=== PATIENT | male | born 2000 | race Two or more races ===

== ENCOUNTER 2020-05-30 18:34 | Emergency (ER) | payer OTHER ==
[~2020-05-30] VITALS: Ht 180.3 cm; Wt 70.5 kg
--- NOTE | 2020-05-30 18:52 | NUR ---
BREAK RN: PT. [facility] PT. HAD LEFT INDEX FINGER TIP AMPUTAION BY SAW WHILE AT WORK [employer]. PT. RECEIVED ABX AND TETANUS SHOT [employer]. IV IN PLACE [employer]. HAND TRAY AT FOR
--- NOTE | 2020-05-30 19:00 | NUR ---
REPORT BACK TO [facility]ER TO REASSUME CARE.
[2020-05-30] MEDS ORDERED: LIDOCAINE-MPF 1%, 5ML ONE (19:22)
[2020-05-30] MEDS ORDERED: BUPIVACAINE 0.25% ONE (19:22)
[2020-05-30] MEDS ORDERED: LIDOCAINE-MPF 2% ,5ML ONE (19:22)
--- NOTE | 2020-05-30 20:15 | NUR ---
pt finger tip amputated by dr zarate and sutured + dressed.
[2020-05-30] MEDS ORDERED: HYDROmorphone 1 MG/ML, 1ML INJ ONE (20:25)
[2020-05-30] MEDS ORDERED: HYDROmorphone 1 MG/ML, 1ML INJ IV ONE (20:30)
[2020-05-30 20:38] VITALS: BP 132/74
== END 2020-05-30 20:41 | disposition home or self-care (01) ==
LOC: ED 20:35
DX: S68.111A Complete traumatic metacarpophalangeal amputation of left index finger, initial encounter (principal); F17.210 Nicotine dependence, cigarettes, uncomplicated; F12.10 Cannabis abuse, uncomplicated; R00.0 Tachycardia, unspecified; X58.XXXA Exposure to other specified factors, initial encounter; Y93.89 Activity, other specified; Y92.69 Other specified industrial and construction area as the place of occurrence of the external cause; Y99.0 Civilian activity done for income or pay
CPT/HCPCS: 96374; 99283; J1170